=== PATIENT | male | born 1995 | race American Indian/Alaskan Native ===

== ENCOUNTER 2020-03-18 10:14 | Emergency (ER) | payer BC, MEDICAID ==
[2020-03-18 10:26] VITALS: BP 130/77
--- NOTE | 2020-03-18 11:16 | XRay Report ---
RIGHT HAND 3 VIEWS INDICATION / CLINICAL INFORMATION: swelling, pain, trauma COMPARISON: None available. FINDINGS: BONES / JOINT(S): Transverse fracture through the midshaft of the fourth metacarpal with posterior di splacement of the distal fragment. A more comminuted fracture is seen towards the base of the fifth m etacarpal. The distal fragment is displaced posteriorly. No significant arthritis. SOFT TISSUES: No significant abnormality. ADDITIONAL FINDINGS: None. Signer Name: Rajesh Hargrove MD Signed: 03/18/2020 11:11 AM Workstation Name: [id number]
[2020-03-18] MEDS ORDERED: oxyCODONE /ACETAMINOPHEN 5-325MG TAB PO ONE (12:30)
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
== END 2020-03-18 13:37 | disposition home or self-care (01) ==
LOC: ED 10:14
DX: S62.316A Displaced fracture of base of fifth metacarpal bone, right hand, initial encounter for closed fracture (principal); Z79.899 Other long term (current) drug therapy; V29.49XA Motorcycle driver injured in collision with other motor vehicles in traffic accident, initial encounter; Y93.89 Activity, other specified; Y92.89 Other specified places as the place of occurrence of the external cause; Y99.8 Other external cause status
CPT/HCPCS: 99283

== ENCOUNTER 2021-02-07 16:43 | Emergency (ER) | payer BC, OTHER ==
[2021-02-07 17:13] VITALS: BP 141/76
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
--- NOTE | 2021-02-07 19:34 | XRay Report ---
CHEST 2 VIEWS inspiration and expiration INDICATION / CLINICAL INFORMATION: Right chest wall pain. COMPARISON: None available. FINDINGS: SUPPORT DEVICES: None. HEART / MEDIASTINUM: No significant abnormality. LUNGS / PLEURA: No significant pulmonary or pleural abnormality. No pneumothorax. ADDITIONAL FINDINGS: No displaced right rib fracture IMPRESSION: 1. No acute findings. Signer Name: Sam Dozier MD Signed: 02/07/2021 7:30 PM Workstation Name: [id number]
== END 2021-02-07 20:33 | disposition home or self-care (01) ==
LOC: ED 16:43
DX: S01.81XA Laceration without foreign body of other part of head, initial encounter (principal); S20.211A Contusion of right front wall of thorax, initial encounter; Z98.890 Other specified postprocedural states; Z79.899 Other long term (current) drug therapy; W18.39XA Other fall on same level, initial encounter; Y93.89 Activity, other specified; Y92.89 Other specified places as the place of occurrence of the external cause; Y99.8 Other external cause status
CPT/HCPCS: 71046; 99283